=== PATIENT | male | born 1990 | race Caucasian/White ===

== ENCOUNTER 2017-09-03 01:04 | Emergency (ER) | payer OTHER ==
[~2017-09-03] VITALS: Ht 177.8 cm; Wt 79.3 kg
[2017-09-03 01:19] VITALS: BP 161/79
== END 2017-09-03 02:37 | disposition left against medical advice (07) ==
LOC: EME 01:04
DX: R06.02 Shortness of breath (principal); Z53.21 Procedure and treatment not carried out due to patient leaving prior to being seen by health care provider